=== PATIENT | female | born 1960 | race Caucasian/White ===

== ENCOUNTER → 2020-05-14 05:58 | Outpatient (CLI) | payer OTHER, SELFPAY ==
--- NOTE | 2020-05-13 | FLU_PTH ---
PATIENT: ROSY VELASQUEZ LOC: [facility] U#:[id number] AGE/SX: 64/F ROOM: RE05/14/[address]: Dr. Nestor Lozano MD : 1960 BED: DIS: SPEC #: [id number] RECD: 05/13/20 17:25 STATUS: AUBREE LASHONDA #: [id number] WINDY: 05/13/20 00:[address]: Nestor Lozano DEPT: CYTOLOGY RECD BY: Duarte Jerome Tissues: Thyroid gland, NOS Procedures: Special Stain Group II Surgery Specimen Level IV Cytospin Fluid HEADER OPERATION: FNA PRE-OP DIAGNOSIS: Right thyroid nodule TISSUE SUBMITTED: FNA right thyroid nodule fluid for cytology DIAGNOSIS CYTOLOGY Fine needle aspiration, right thyroid nodule (cytospin and cell block): Benign skeletal muscle tissue present. See comment. AM:fernie 05/17/2020 COMMENT The specimen does not contain thyroid follicular cells. Clinical correlation is suggested. CYTOLOGY STUDY Slides are reviewed. CYTOLOGY GROSS Received is 40 ml of clear fluid labeled with the patient's name and and designated per the requisition as right thyroid nodule. Submitted for cytology preparation including cell block. / fernie 05/14/2020 TC: CPT: 62053, 36436
== END ==
PROVIDERS: Visit Provider Otolaryngology
DX: E04.1 Nontoxic single thyroid nodule (principal)
CPT/HCPCS: 88108; 88305; 88313

== ENCOUNTER → 2020-06-04 11:25 | Outpatient (CLI) | payer OTHER, SELFPAY ==
--- NOTE | 2020-06-04 11:34 | US_ITS ---
PROCEDURE: ULTRASOUND GUIDED RIGHT THYROID FNA/BIOPSY. DATE: 06/04/2020 INDICATION: Female, 60 years old. Right thyroid nodule. PHYSICIAN: Kyle Hoff M.D. MEDICATIONS: 2% lidocaine administered subcutaneously for local anesthesia. ACCESS SITE: Right - anterior approach. NEEDLE: 25-gauge FNA needle. SPECIMEN: Multiple FNA specimen collected and given to pathology. EBL: None. COMPLICATIONS: None immediate. PROCEDURE: The risks, benefits, and alternatives to the procedure were explained to the patient. The specific risk of hemorrhage requiring further treatment or intervention was detailed and accepted. Written informed consent was obtained. The patient was brought into the ultrasound room and placed in the supine position on the stretcher. An appropriate entry site was identified. The overlying skin was prepped and draped in the usual sterile fashion. 2% lidocaine was administered subcutaneously for local anesthesia. Under ultrasound guidance, a 25-gauge FNA needle was advanced into the lesion. Aspiration was performed and the needle was withdrawn. A total of 7 passes were performed with specimen collected and given to the pathologist who was present during the procedure. Hemostasis was achieved with manual compression. Repeat ultrasound images of the biopsy area was performed which demonstrated no gross bleeding or hematoma. An antibiotic ointment dressing was placed and the patient was given an icepack. The patient tolerated the procedure well without immediate complications. The patient was discharged in stable condition. US/FNA 1st Biopsy w/ US IMPRESSION: Successful ultrasound-guided right thyroid nodule FNA/biopsy, as described above. Electronically Signed: Kyle Hoff MD at 8:05 EDT , Service support ,
--- NOTE | 2020-06-04 12:15 | ASPIG_PTH ---
PATIENT: ROSY VELASQUEZ LOC: [facility]#:[id number] AGE/SX: 64/F ROOM: RE06/04/[address]: Dr. Nestor Lozano MD : 1960 BED: DIS: SPEC #: [id number] RECD: 06/04/20 12:30 STATUS: AUBREE LASHONDA #: [id number] [place]Y: 06/04/20 12:[address]: Nestor Lozano DEPT: CYTOLOGY RECD BY: Karine Jackson ENTERED: 06/04/20 13:01 SP TYPE: ASP OUT OTHR DR: Sania Javier PA-C Tissues: Thyroid gland, NOS Procedures: FNA Specimen Adequacy Special Stain Group II Surgery Specimen Level IV Cytology Other HEADER OPERATION: Ultrasound-guided fine needle aspiration of thyroid PRE-OP DIAGNOSIS: Right thyroid mass TISSUE SUBMITTED: Right thyroid mass for cytology DIAGNOSIS CYTOLOGY Right thyroid mass, ultrasound-guided FNA (smears and cell block): Consistent with benign follicular/colloid nodule. Adequate for evaluation. See comment. AGUIE:fernie 06/07/2020 COMMENT The specimen is evaluated at the time of FNA by Dr. Casas. Immediate Evaluation = Adequate for evaluation. Follicular cells present. Clinical correlation and appropriate follow up are necessary. Please also correlate with corresponding surgical specimen ([id number]). Please make reference to previous specimen ([id number]) fine needle aspiration, right thyroid nodule with diagnosis of benign skeletal muscle tissue present. CYTOLOGY STUDY Slides are reviewed. CYTOLOGY GROSS Received is 0.8 ml of bloody fluid labeled with the patient's name, and designated right thyroid mass. From four passes, 7 imprints and 6 paps are made from the submitted fluid and the rest is added to CytoLyt for cell block preparation. Submitted for cytology study. / AUGIE:fernie 06/04/2020 TC:5 CPT: 39132, 20191, 93300
--- NOTE | 2020-06-04 12:15 | THYROID_PTH ---
PATIENT: ROSY VELASQUEZ LOC: [facility]#:[id number] AGE/SX: 64/F ROOM: RE06/04/[address]: Dr. Nestor Lozano MD : 1960 BED: DIS: SPEC #: [id number] RECD: 06/04/20 12:30 STATUS: AUBREE LASHONDA #: [id number] [place]Y: 06/04/20 12:[address]: Nestor Lozano DEPT: SURGICAL PATHOLOGY RECD BY: Karine Jackson ENTERED: 06/04/20 13:02 SP TYPE: THYROID OTHR DR: Saina Javier PA-C Tissues: Thyroid gland, NOS Procedures: Surgery Specimen Level IV Comments: @ Specimen number changed from [id number] to [id number] @ on 06/04/20 at 1303 by CWAGNER. HEADER OPERATION: Ultrasound-guided FNA of right thyroid mass PRE-OP DIAGNOSIS: Right thyroid mass TISSUE SUBMITTED: Right thyroid mass MICROSCOPIC DIAGNOSIS Right thyroid mass, ultrasound-guided core biopsy: Consistent with benign follicular/colloid nodule. See comment. AUGIE:fernie 06/07/2020 COMMENT Please also correlate with corresponding cytology specimen ([id number]). Please make reference to previous specimen ([id number]) fine needle aspiration, right thyroid nodule with diagnosis of benign skeletal muscle tissue present. MICROSCOPIC DESCRIPTION Slides are reviewed. GROSS DESCRIPTION Received in fixative is one container labeled with the patient's name and designated right thyroid, ultrasound-guided core biopsy. The specimen consists of multiple irregular fragments of salazar soft tissue that in aggregate measure 1 x 0.1 x <0.1 cm. The specimen is totally submitted in one cassette. / AUGIE:fernie 06/04/20 TC:5 CPT: 80173
--- NOTE | 2020-06-04 12:53 | NURSING ---
PRESENT DURING THYROID BX, PT BECAME PALE AND DIAPHORETIC, DID NOT LOOSE CONSCIOUSNESS, COOL WASH CLOTHES APPLIED TO FORHEAD AND NECK AREA, AFTER PROCEDURE SLOWLY RAISED PT TO A SITTING POSITION AND SHE TOLERATED WELL, BX AREA DRY AND OPSITE APPLIED. WITH PT AT DC AND VIA WHEEL CHAIR
== END ==
PROVIDERS: PCP Family Medicine; Referring Provider Otolaryngology; Visit Provider Otolaryngology
DX: E04.1 Nontoxic single thyroid nodule (principal)
CPT/HCPCS: 10005; 88161; 88172; 88305; 88313